=== PATIENT | female | born 1965 | race Caucasian/White ===

== ENCOUNTER 2020-08-12 14:01 | Day surgery (SDCO) | payer OTHER ==
[~2020-08-12] VITALS: Ht 160 cm; Wt 65.9 kg
[2020-08-12 16:12] LABS: BASOPHIL 0.4 % (0-2); EOSINOPHIL 3.3 % (0-5); HCT 44.4 % (37.0-47.0); HGB 14.5 g/dl (12.5-16.0); LYMPHOCYTE 13.9 % (15-48); MCH 27.7 pg (25.0-31.0); MCHC 32.7 g/dL (32.0-36.0); MCV 84.7 fL (78.0-100.0); MONOCYTE 7.6 % (0-12); MPV 9.8 fL (6.0-9.5); NEUTROPHIL 73.9 % (41-80); NRBC 0; PLT 323 K/uL (150-400); RBC 5.24 M/uL (4.20-5.40); RDW 14.6 % (11.5-14.0); WBC 12.2 K/uL (4.0-10.5)
[2020-08-12 16:27] LABS: ALBUMIN 3.6 g/dL (3.4-5.0); BILIRUBIN - TOTAL 0.5 mg/dL (0.2-1.0); BUN/CREAT RATIO (CALC) 18.4 RATIO; CREATININE 0.76 mg/dL (0.51-0.95); GLOBULIN (CALCULATION) 4.1 g/dL; POTASSIUM 3.3 mmol/L (3.5-5.1); TOTAL PROTEIN 7.7 g/dL (6.4-8.2)
[2020-08-12 17:10] LABS: INR 1.02 (0.9-1.2); PROTHROMBIN TIME 12.8 SECONDS (11.8-13.4); PTT 25.3 SECONDS (24.4-34.7)
[2020-08-12] MEDS ORDERED: ALPRAZOLAM ER1 MG PO (18:38)
[2020-08-12] MEDS ORDERED: XANAX0.25 MG PO (18:39)
[2020-08-12] MEDS ORDERED: TOPROL XL 50 MG50 MG PO (18:39)
[2020-08-12] MEDS ORDERED: LIPITOR20 MG PO (18:40)
[2020-08-12] MEDS ORDERED: DULERA 100 MCG8.8 GM INH (18:41)
[2020-08-12] MEDS ORDERED: FLONASE ALLER15.8 ML (18:41)
[2020-08-12] MEDS ORDERED: SPIRIVA RESPIMAT4 G1 INH (18:43)
[2020-08-12] MEDS ORDERED: DULERA 200 MCG8.8 GM INH (18:43)
[2020-08-12] MEDS ORDERED: SINGULAIR10 MG PO (18:44)
[2020-08-12] MEDS ORDERED: 24HOUR ALLERGY10 MG PO (18:44)
[2020-08-12] MEDS ORDERED: VENTOLIN HFA IN18 GM INH (18:45)
--- NOTE | 2020-08-12 22:45 | NUR ---
PT. HAD 2ND TROPONIN ORDERED FOR 08/12/20 2200. PT. WAS STUCK BY RN AND NO BLOOD RETURN WAS GIVEN, RT TRIED TO GET BLOOD VIA ARTERIAL-NO SUCCESS, [employer] NOTIFIED. PT. STATES THAT SHE DOESNT WANT TO BE STUCK ANYMORE. LAB WAS CANCELED AT THIS TIME PER [employer]. ER, RN
[2020-08-13 05:59] LABS: HCT 40.1 % (37.0-47.0); HGB 13.1 g/dl (12.5-16.0); MCH 27.5 pg (25.0-31.0); MCHC 32.7 g/dL (32.0-36.0); MCV 84.1 fL (78.0-100.0); MPV 9.7 fL (6.0-9.5); RBC 4.77 M/uL (4.20-5.40); RDW 14.9 % (11.5-14.0); WBC 11.1 K/uL (4.0-10.5)
[2020-08-13 06:13] LABS: BUN/CREAT RATIO (CALC) 16.4 RATIO; CREATININE 0.61 mg/dL (0.51-0.95); POTASSIUM 3.8 mmol/L (3.5-5.1)
[2020-08-13] MEDS ORDERED: ASPIRIN EC81 MG PO (09:14)
--- NOTE | 2020-08-13 12:07 | NUR ---
PAIENT DISCHARGED VIA WHEELCHAIR ACCOMPANIED BY FAMILY AND NURSE. IV DCD. MONITOR DCD. VERBALIZED UNDERSTANDING OF DISCHARGE INSTRUCTIONS.
== END 2020-08-13 11:50 | disposition home or self-care (01) ==
LOC: FER 14:01 → FTCU 17:28
PROVIDERS: Emergency Medicine; ADMIT Hospitalist
DX: R07.89 Other chest pain (principal); I11.9 Hypertensive heart disease without heart failure; E78.5 Hyperlipidemia, unspecified; J45.909 Unspecified asthma, uncomplicated; K27.9 Peptic ulcer, site unspecified, unspecified as acute or chronic, without hemorrhage or perforation; K44.9 Diaphragmatic hernia without obstruction or gangrene; Z98.84 Bariatric surgery status; Z82.49 Family history of ischemic heart disease and other diseases of the circulatory system; Z88.2 Allergy status to sulfonamides; Z88.0 Allergy status to penicillin; Z88.4 Allergy status to anesthetic agent; Z79.899 Other long term (current) drug therapy; Z20.822 Contact with and (suspected) exposure to COVID-19
CPT/HCPCS: 36415; 71045; 80048; 80053; 80061; 84484; 85025; 85610; 85730; 93005; G0378; U0002